=== PATIENT | male | born 2000 | race Hispanic/Latino ===

== ENCOUNTER 2022-11-24 22:07 | Emergency (ER) | payer OTHER ==
[~2022-11-24] VITALS: Ht 172.7 cm; Wt 90.9 kg
[2022-11-24] MEDS ORDERED: LIDOCAINE 2% MDV 20ML VIAL SC ONE (22:45)
[2022-11-24] MEDS ORDERED: NEOSPORIN OINT 0.9 GM PKT TOP ONE (23:10)
[2022-11-24 23:11] VITALS: BP 111/61; TEMP 98.3; O2SAT 100
== END 2022-11-24 23:36 | disposition home or self-care (01) ==
LOC: M ED 22:07
DX: S61.216A Laceration without foreign body of right little finger without damage to nail, initial encounter (principal); W26.0XXA Contact with knife, initial encounter; Y92.009 Unspecified place in unspecified non-institutional (private) residence as the place of occurrence of the external cause; Y93.89 Activity, other specified; Y99.9 Unspecified external cause status

== ENCOUNTER 2022-12-05 09:49 | Emergency (ER) | payer OTHER ==
[~2022-12-05] VITALS: Ht 172.7 cm; Wt 92.6 kg
[2022-12-05 09:50] VITALS: BP 138/66; TEMP 97.8; O2SAT 96
[2022-12-05] MEDS ORDERED: MIRT-10 (10:11)
[2022-12-05] MEDS ORDERED: SUMA20SP4 (10:11)
== END 2022-12-05 11:00 | disposition home or self-care (01) ==
LOC: M ED 09:49
DX: Z48.02 Encounter for removal of sutures (principal); Z79.899 Other long term (current) drug therapy

== ENCOUNTER 2023-01-11 14:49 | Emergency (ER) | payer OTHER ==
[~2023-01-11] VITALS: Ht 172.7 cm; Wt 94.1 kg
[~2023-01-11 14:49] MED LIST: MIRT-10; SUMA20SP4
[2023-01-11 16:21] LABS: RSV AMPLIFICATION POSITIVE (NEGATIVE)
[2023-01-11] MEDS ORDERED: AMOX875T2 PO (16:43)
[2023-01-11] MEDS ORDERED: AUGMENTIN 875 MG TAB PO ONE (16:45)
[2023-01-11 16:51] VITALS: BP 127/64; TEMP 98.9; O2SAT 98
== END 2023-01-11 16:54 | disposition home or self-care (01) ==
LOC: M ED 14:49
DX: J02.9 Acute pharyngitis, unspecified (principal); B34.8 Other viral infections of unspecified site

== ENCOUNTER 2023-02-27 11:49 | Emergency (ER) | payer OTHER ==
[~2023-02-27] VITALS: Ht 172.7 cm; Wt 98.1 kg
[~2023-02-27 11:49] MED LIST changes: +AMOX875T2 PO
[2023-02-27] MEDS ORDERED: MIRT-84 PO (12:11)
[2023-02-27] MEDS ORDERED: KETOROLAC 60MG 2ML VIAL IM ONE (13:55)
[2023-02-27] MEDS ORDERED: LIDOCAINE 5% (LIDODERM) PATCH TD ONE (13:55)
[2023-02-27 14:33] VITALS: BP 121/68; TEMP 98.5; O2SAT 99
[2023-02-27] MEDS ORDERED: LIDO5DIS41 TD (14:53)
[2023-02-27] MEDS ORDERED: NAPR-837 PO (14:53)
[2023-02-27] MEDS ORDERED: CYCL-707 PO (14:53)
== END 2023-02-27 15:02 | disposition home or self-care (01) ==
LOC: M ED 11:49
DX: S33.5XXA Sprain of ligaments of lumbar spine, initial encounter (principal); M54.50 Low back pain, unspecified; F51.01 Primary insomnia; R51.9 Headache, unspecified; Z79.2 Long term (current) use of antibiotics; Z79.1 Long term (current) use of non-steroidal anti-inflammatories (NSAID); Z79.899 Other long term (current) drug therapy
CPT/HCPCS: 72110; 96372; 99283; J1885

== ENCOUNTER 2023-05-13 09:37 | Emergency (ER) | payer OTHER ==
[~2023-05-13] VITALS: Ht 172.7 cm; Wt 98.3 kg
[~2023-05-13 09:37] MED LIST changes: +CYCL-707 PO; +LIDO5DIS41 TD; +MIRT-84 PO; +NAPR-837 PO
[2023-05-13] MEDS: ACETAMINOPHEN 500 MG TAB PO ONE (10:15)
[2023-05-13] MEDS: BENZONATATE 100MG CAPSULE PO ONE (10:15)
[2023-05-13] MEDS ORDERED: AMOX500C PO (11:11)
[2023-05-13 11:12] VITALS: BP 131/82; TEMP 97.8; O2SAT 98
== END 2023-05-13 11:18 | disposition home or self-care (01) ==
LOC: M ED 10:20
DX: J06.9 Acute upper respiratory infection, unspecified (principal); H66.92 Otitis media, unspecified, left ear

== ENCOUNTER 2023-07-08 10:24 | Emergency (ER) | payer OTHER ==
[~2023-07-08] VITALS: Ht 172.7 cm; Wt 98.4 kg
[~2023-07-08 10:24] MED LIST changes: +AMOX500C PO
[2023-07-08 10:25] VITALS: BP 139/88; TEMP 98.4; O2SAT 98
[2023-07-08] MEDS ORDERED: VENTAER INH (13:59)
[2023-07-08] MEDS ORDERED: BENZ200C70 PO (13:59)
== END 2023-07-08 14:05 | disposition home or self-care (01) ==
LOC: M ED 10:24
DX: J45.909 Unspecified asthma, uncomplicated (principal); Z11.52 Encounter for screening for COVID-19

== ENCOUNTER 2023-07-16 09:42 | Day surgery (SDC) | payer OTHER ==
[~2023-07-16] VITALS: Ht 172.7 cm; Wt 96.6 kg
[~2023-07-16 09:42] MED LIST changes: +BENZ200C70 PO; +VENTAER INH
[2023-07-16] MEDS ORDERED: propofoL 500 MG/50 ML VIAL As Ordered ONE (10:20)
[2023-07-16 10:56] VITALS: TEMP 98.7
[2023-07-16 11:26] VITALS: BP 134/84; O2SAT 96
== END 2023-07-16 11:38 | disposition home or self-care (01) ==
LOC: M OPP 09:42
PROVIDERS: ATTEND Surgery
DX: K64.0 First degree hemorrhoids (principal); K92.1 Melena; K22.89 Other specified disease of esophagus; Z79.899 Other long term (current) drug therapy

== ENCOUNTER → 2023-08-08 | Outpatient (CLI) | payer OTHER | LOC: M RAD 07:37 | PROVIDERS: ATTEND Internal Medicine | DX: M67.51 Plica syndrome, right knee (principal) ==

== ENCOUNTER 2023-08-19 13:01 | Emergency (ER) | payer OTHER ==
[~2023-08-19] VITALS: Ht 172.7 cm; Wt 97.7 kg
[2023-08-19 13:02] VITALS: TEMP 98.6
[2023-08-19] MEDS ORDERED: APAP325T4 PO (13:09)
[2023-08-19 15:12] VITALS: BP 145/73; O2SAT 99
== END 2023-08-19 15:13 | disposition home or self-care (01) ==
LOC: M ED 13:01
DX: J06.9 Acute upper respiratory infection, unspecified (principal); Z79.1 Long term (current) use of non-steroidal anti-inflammatories (NSAID); Z79.51 Long term (current) use of inhaled steroids